=== PATIENT | female | born 1975 | race Caucasian/White ===

== ENCOUNTER 2016-11-03 18:49 | Emergency (ER) | payer OTHER ==
[~2016-11-03] VITALS: Ht 165.1 cm; Wt 58.0 kg
[~2016-11-03 18:49] MED LIST: DARV PO; FERR324T4 PO; LABE200T2 PO; OXYC-360 PO; PREN0.01 PO
[2016-11-03 18:50] VITALS: BP 150/75; PULSE 89; RESP 15; TEMP 98.1; O2SAT 97
[2016-11-03] MEDS ORDERED: KETOROLAC TROMETHAMINE 30 MG/ML (IVP) VIAL IM ONE (19:30)
[2016-11-03] MEDS ORDERED: ONDANSETRON HCL 4 MG/2 ML VIAL IM ONE (19:30)
--- NOTE | 2016-11-03 19:31 | PD ---
HPI Chief Complaint: Complaint Time Seen by Provider: 19:02 Travel History International Travel<30 days: No Contact w/Intl Traveler<30days: No Traveled to known affect area: No History of Present Illness HPI Healthy 41-year-old female here with complaint of urinary symptoms and flank pain. Patient has had approximately 6 days of bilateral flank pain, she actually points more towards the low back and less towards costophrenic angle. Patient noted hematuria. She was seen 4 days ago by her PCP who started her on oral Bactrim for presumptive UTI based on white blood cells in her urine. Patient say that she has been compliant with this, but her symptoms have not improved and she is not having a slight amount of nausea. She notes increasing vaginal discharge, more than her baseline. No new sexual partners or high-risk sexual behaviors. She does not play she could be . In the interim her hematuria has resolved. [facility] Past Medical History Immunizations Current: Yes ?: Unknown Past Surgical History Section: Yes Social History Alcohol Use: No Tobacco Use: No Substance Use: No Allergies-Medications (Allergen,Severity, Reaction): Coded Allergies: Neosporin (Verified Allergy, Mild, Rash, 11/03/16) Reported Meds & Prescriptions Reported Meds & Active Scripts Active Review of Systems Except as stated in HPI: all other systems reviewed are Neg Physical Exam Narrative GENERAL: Well-appearing female in no acute distress SKIN: Warm and dry. HEAD: Normocephalic. EYES: No scleral icterus. No injection or drainage. ENT: Mucous membranes pink and moist. NECK: Supple CARDIOVASCULAR: Regular rate and rhythm. No murmur appreciated. RESPIRATORY: No accessory muscle use. Clear to auscultation. Breath sounds equal bilaterally. GASTROINTESTINAL: Abdomen soft, non-tender, nondistended. Genitourinary: Normal external female genitalia. Speculum examination reveals thick white vaginal discharge and mild cervical erythema but no significant cervical motion tenderness area did patient has slight discomfort on bimanual exam but no significant pain. MUSCULOSKELETAL: Normal gait NEUROLOGICAL: Awake and alert. Normal speech. PSYCHIATRIC: Appropriate mood and affect; insight and judgment normal. Data Data Last Documented VS Vital Signs Date Time Temp Pulse Resp B/P Pulse Ox O2 Delivery O2 Flow Rate FiO2 11/03/16 18:50 98.1 89 15 150/75 97 Orders Urinalysis - C+S If Indicated (11/03/16 19:02) Ct Abd/Pel W/O Iv Contrast (11/03/16 19:25) Ondansetron Inj (Zofran Inj) (11/03/16 19:30) Ketorolac Inj (Toradol Inj) (11/03/16 19:30) Ed Urine Pregnancytest Poc (11/03/16 19:25) Gc And Chlamydia Pcr (11/03/16 19:25) Wet Prep Profile (11/03/16 19:25) Urine Culture (11/03/16 19:15) Labs Laboratory Tests Test 11/03/16 11/03/16 19:15 19:40 Urine Color YELLOW Urine Turbidity CLEAR Urine pH 6.5 Urine Specific [place] 1.017 Urine Protein NEG mg/dL Urine Glucose (UA) NEG mg/dL Urine Ketones NEG mg/dL Urine Occult Blood NEG Urine Nitrite NEG Urine Bilirubin NEG Urine Urobilinogen LESS THAN 2.0 MG/DL Urine Leukocyte Esterase LARGE Urine RBC 5 /hpf Urine WBC 17 /hpf Urine Squamous Epithelial <1 /hpf Cells Urine Mucus FEW /lpf Microscopic Urinalysis Comment CULTURE INDICATED Clue Cells (Wet Prep) NONE SEEN Vaginal Trichomonas (Wet Prep) NONE SEEN Vaginal Yeast (Wet Prep) NONE SEEN MDM Medical Decision Making Medical Screen Exam Complete: Yes Emergency Medical Condition: Yes Medical Record Reviewed: Yes Differential Diagnosis 41-year-old female here with complaints of 6 days of low back pain, hematuria now resolved and increasing vaginal discharge. Differential includes , ectopic , pelvic inflammatory disease, sexually transmitted infection , yeast infection, bacterial vaginosis, UTI, ureterolithiasis. Overall her abdominal examination is benign making peritoneal pathology unlikely. Narrative Course IM Toradol, Zofran ordered the patient declined. Urine test was negative. GC and Chlamydia sent but I would not empirically treat her based on her symptoms at this time. Wet prep, urinalysis showed large leukocyte esterase with 17 white cells, 5 red cells and few mucus. CT abdomen and pelvis showed no acute abnormalities. Will have patient discontinue her Bactrim and switch to Macrobid instead. Outpatient PCP follow-up. Diagnosis Primary Impression: Urinary tract infection Qualified Code: N30.01 - Acute cystitis with hematuria Referrals: Primary Care Physician as needed Additional Instructions: Discontinue Bactrim. Take Macrobid instead. Take the full, as all your PCP has arty prescribed to you. Follow-up with PCP if symptoms persist. Med/Other Pt SpecificInfo: Prescription(s) given, Med Stopped Scripts Nitrofurantoin Monohydrate Macrocrystals (Macrobid)100 Mg [id number] Mg PO BID 7 Days Ref 0 Prov:Miriam Eller MD 11/03/16 Disposition: 01 DISCHARGE HOME Condition: Stable Miriam Eller MD Nov 03, 2016 19:31
[2016-11-03 19:34] LABS: BLOOD, URINE NEG (NEG); COMMENT (UR) CULTURE INDICATED; CULTURE IF INDICATED CULTURE INDICATED; GLUCOSE,URINE NEG (NEG); KETONE, URINE NEG (NEG); MUCUS URINE FEW /lpf (OCC); NITRITE,URINE NEG (NEG); PH, URINE 6.5 (5.0-8.5); SQUAMOUS EPITHELIAL CELL URINE <1 /hpf (0-5); URINE COLOR YELLOW (YELLW/STRAW)
[2016-11-03] MEDS ORDERED: MACR100C2 PO (21:26)
--- NOTE | 2016-11-03 21:26 | RADRPT ---
EXAM DATE/TIME: 11/03/2016 20:15 [facility] COMPARISON: No previous studies available for comparison. INDICATIONS : Gross hematuria with bilateral flank pain. ORAL CONTRAST: No oral contrast ingested. RADIATION DOSE: 4.32 CTDIvol (mGy) MEDICAL HISTORY : None SURGICAL HISTORY : section. ENCOUNTER: Initial ACUITY: 3 days PAIN SCALE: 7/10 LOCATION: Bilateral flank TECHNIQUE: Volumetric scanning of the abdomen and pelvis was performed. Using automated exposure control and ad justment of the mA and/or kV according to patient size, radiation dose was kept as low as reasonably achievable to obtain optimal diagnostic quality images. FINDINGS: Lung bases are clear. No significant abnormality identified of the liver, spleen, adrenals, kidneys o r pancreas. Specifically no hydronephrosis is seen. No renal or ureteral or bladder calculi are ident ified. There is mild constipation. No free air or free fluid. No bowel obstruction. No adenopathy. CONCLUSION: 1. No acute findings. Specifically no hydronephrosis or renal calculi identified. Mild constipation. Jarad Law MD on November 03, 2016 at 21:21 Board Certified Radiologist. This report was verified electronically.
[2016-11-03 21:54] LABS: CHLAMYDIA PCR NOT DETECTED (NOT DETECT); NEISSERIA PCR NOT DETECTED (NOT DETECT)
== END 2016-11-03 21:45 | disposition home or self-care (01) ==
LOC: NEPE 18:49
DX: N30.01 Acute cystitis with hematuria (principal)
CPT/HCPCS: 74176; 81001; 84703; 87086; 87210; 87491; 87591